=== PATIENT | female | born 1950 | race Caucasian/White ===

== ENCOUNTER → 2020-01-17 12:59 | Outpatient (CLI) | payer OTHER, SELFPAY ==
--- NOTE | 2020-01-17 | DI.CT.S_ITS ---
PROCEDURE: CT PEL WO CON INDICATIONS: Pain in right hip TECHNIQUE: Noncontrast 3 mm axial sections acquired through the bony pelvis, with coronal and sagittal reformatting. COMPARISON: [facility] [place], [place], XR PELVIS WITH LATERAL HIP RIGHT, 01/08/2020, 13:26. FINDINGS: Image quality: Excellent. Bones: Severe bilateral hip joint osteoarthritis, with greater degenerative distortion of the right hip joint than the left. There is [id number] articulation bilaterally. No underlying effusion or evidence of infection is found. Soft tissues: No inflammatory change seen. No joint effusion IMPRESSION: Severe bilateral hip joint osteoarthritis with [id number] articulation. No acute trauma found. No effusion or synovial protrusion found. Dictated by: Raymond Licona M.D. on 01/17/2020 at 14:08 Approved by: Raymond Licona M.D. on 01/17/2020 at 14:10
== END ==
PROVIDERS: PCP Internal Medicine; Referring Provider Orthopaedic Surgery; Visit Provider Orthopaedic Surgery
DX: M25.551 Pain in right hip (principal); M16.0 Bilateral primary osteoarthritis of hip
CPT/HCPCS: 72192